=== PATIENT | male | born 1940 | race Caucasian/White ===

== ENCOUNTER 2023-05-28 08:42 | Emergency (ER) | payer MEDICARE, SELFPAY ==
--- NOTE | 2023-05-28 08:47 | ED.WOUNDLAC ---
HPI - Wound/Laceration General Chief Complaint: Skin/Abscess/Foreign Body Stated Complaint: finger laceration Time Seen by Provider: 05/28/23 08:47 Source: patient Mode of arrival: ambulatory Limitations: no limitations History of Present Illness HPI narrative: 82-year-old male presents with skin avulsion to right index finger. Injury happened last evening while slicing potatoes. Using a mandolin. patient applied gauze, wearing tape from home and Saran wrap. Patient states that bleeding stopped last night but when taking dressing off to re-dress with this morning it started to bleed again. Cannot get it to stop this time. Arrived holding finger With a paper towel. Tetanus not up-to-date. Patient does not want vaccine updated today. All systems reviewed and negative except as noted above. Related Data Home Medications Medication Instructions Recorded Confirmed aspirin 81 mg tablet,delayed 81 mg PO DAILY 10/10/21 05/28/23 release (Adult Low Dose Aspirin) folic acid 1 mg tablet 1 mg PO DAILY 10/10/21 05/28/23 multivitamin 1 tablet PO DAILY 10/10/21 05/28/23 prednisone 2.5 mg tablet 2.5 mg PO DAILY 10/10/21 05/28/23 acetaminophen 500 mg tablet 500 mg PO Q6H PRN Pain (Scale 04/15/22 05/28/23 (Tylenol Extra Strength) Score 4-6) methotrexate sodium 25 mg/mL 25 mg subcut WEEKLY 04/15/22 05/28/23 injection solution Allergies Allergy/AdvReac Type Severity Reaction Status Date / Time ibuprofen Allergy Unknown Hives Verified 05/28/23 09:16 Flounder Allergy Unknown HIVES, Uncoded 05/28/23 09:16 AIRWAY SWELLING Review of Systems Review of Systems: CONSTITUTIONAL: Denies fever, chills, or sweats. EYES: Denies visual changes, redness, or discharge. ENT: Denies rhinorrhea, congestion, sore throat, or otalgia. CARDIOVASCULAR: Denies chest pain, palpitations, or edema. RESPIRATORY: Denies cough or dyspnea. GASTROINTESTINAL: Denies abdominal pain, nausea, vomiting, or diarrhea. GENITOURINARY: Denies dysuria or hematuria. SKIN: Denies rash or itching. Reports laceration to right index finger. MUSCULOSKELETAL: Denies back pain, joint pain, or myalgia. NEUROLOGIC: Denies headache, numbness, or weakness. PSYCHIATRIC: Denies anxiety or depression. All other systems reviewed are negative, except as documented in HPI. [facility] Past Medical History Medical History Lung nodule Surgical History Surgical History History of inguinal hernia repair, bilateral 2001 Family History Family History Sibling Diabetes mellitus Father Family history of liver disease Mother , heart murmur with complications of valve replacement at age 82 No problems noted. Social History Social History Smoking status: Former smoker Second hand tobacco smoke exposure: No Smoking end date: 09/08/69 Alcohol intake: never Substance use: never Substance use type: does not use Living arrangements: with family Gender identity (if verbalized by the patient): Male Spiritual care concerns: No Agree to blood products: Yes Comments At time of signature, agree with nursing past medical, surgical, social and family history. There is no relevant family history pertinent to the presenting complaint. Exam Narrative: GENERAL: This is a well-nourished, well-developed patient, in no apparent distress. HEAD: normocephalic, atraumatic. EYES: PERRL. Sclera clear/white. Vision is grossly intact. EARS: External ears normal NOSE: External nose normal NECK: Neck supple, non-tender without lymphadenopathy, masses or thyromegaly. CARDIOVASCULAR: Regular rate and rhythm without murmurs, gallops, or rubs. RESPIRATORY: Clear to auscultation. Breath sounds equal bilaterally. N
[2023-05-28 09:08] VITALS: BP 116/65; PULSE 95; RESP 18; TEMP 36.4; O2SAT 97
--- NOTE | 2023-05-28 09:43 | PC.NURSE ---
Patient declined tetanus shot
== END 2023-05-28 10:00 | disposition home or self-care (01) ==
PROVIDERS: Emergency Provider Nurse Practitioner Family; PCP Family Medicine Adolescent Medicine
DX: S61.200A Unspecified open wound of right index finger without damage to nail, initial encounter (principal); W27.4XXA Contact with kitchen utensil, initial encounter; Z87.891 Personal history of nicotine dependence; Z79.82 Long term (current) use of aspirin
CPT/HCPCS: 99213; G0463

== ENCOUNTER → 2023-07-07 11:18 | Outpatient (CLI) | payer MEDICARE, SELFPAY ==
--- NOTE | ~2023-07-07 | US_ITS ---
EXAMINATION: US pelvic limited DATE: 07/07/2023 11:37 INDICATION: Comparison: TECHNIQUE: Multiple transabdominal sonographic images of the pelvis performed. FINDINGS: Bladder wall is mildly thickened. Prostate gland is enlarged. Prevoid volume is 323 cc. Pos tvoid volume is 129 cc. IMPRESSION: 1. Enlarged prostate gland with bladder wall thickening, likely due to outlet obstruction. 2: Moderate post void residual measuring 129 cc. Reviewed, dictated and finalized at location A. IMPRESSION: 1. Enlarged prostate gland with bladder wall thickening, likely due to outlet o bstruction. 2: Moderate post void residual measuring 129 cc.
== END ==
PROVIDERS: PCP Nurse Practitioner Family; Visit Provider Nurse Practitioner Family
DX: R33.9 Retention of urine, unspecified (principal)
CPT/HCPCS: 76857

== ENCOUNTER 2024-05-31 12:05 | Outpatient (CLI) | payer MEDICARE, SELFPAY ==
--- NOTE | ~2024-05-31 | XR_ITS ---
Clinical Indication: Weakness PA and lateral views of the chest: Comparison: 12/16/2018 Findings: The lungs are clear, without evidence of focal consolidation or pleural effusion. Cardiome diastinal silhouette is within normal limits. Bones and soft tissues are unremarkable, aside from chr onic right rib fracture deformities. Impression: Clear lungs. Reviewed, dictated and finalized at location . Impression: Clear lungs.
== END 2024-05-31 12:06 | disposition home or self-care (01) ==
PROVIDERS: PCP Family Medicine Adolescent Medicine; Visit Provider Family Medicine
DX: R53.1 Weakness (principal)
CPT/HCPCS: 71046

== ENCOUNTER 2024-07-01 09:41 | Outpatient (CLI) | payer MEDICARE, SELFPAY ==
--- NOTE | 2024-07-01 09:54 | ECHO_ITS ---
Patient Info Name: Surinder Navarro Age: 83 years : 1940 Gender: Male Ht: 69 in Wt: 172 lbs BSA: 1.96 m2 HR: 83 bpm BP: 119 / 69 mmHg Technical Quality: Fair Exam Date: 07/01/2024 10:05 AM Exam Location: Echo Lab Patient Status: Outpatient Admit Date: 07/01/2024 Staff Ordering Physician: Carmine Johnston DO Auditor Medical Claims: Cristina Amaya RDCS Attending Provider: Carmine Johnston DO Referring Physician: Preston ZAPIEN; Exam Type: CA echo doppler color flow Study Info Indications R01.1 - Cardiac murmur, unspecified Complete two-dimensional, color flow and Doppler transthoracic echocardiogram is performed. Summary 1. Complete two-dimensional, color flow and Doppler transthoracic echocardiogram is performed. 2. Left ventricular chamber dimension is normal. 3. Left ventricular systolic function is normal, estimated at 60-65%. 4. There is mild concentric increased left ventricular wall thickness. 5. The left ventricular diastolic function is grade I diastolic dysfunction. 6. E/e' 18 is elevated. 7. Left atrial chamber dimension is mildly enlarged. 8. There is severe aortic valve sclerosis. 9. There is trace aortic valve regurgitation. 10. There is critical aortic valve stenosis with a peak velocity of 569 cm/s, mean gradient of 66 mmHg, and aortic valve area of 0.5 cm2. 11. The mitral valve has moderately calcified annulus. 12. There is mild mitral valve regurgitation. 13. There is mild tricuspid valve regurgitation. 14. Mild pulmonary hypertension, estimated pulmonary arterial systolic pressure is 43 mmHg. Left Ventricle E/e' 18 is elevated. Left ventricular chamber dimension is normal. Left ventricular systolic function is normal, estimated at 60-65%. There is mild concentric increased left ventricular wall thickness. The left ventricular diastolic function is grade I diastolic dysfunction. Right Ventricle Right ventricular systolic function is normal and with normal TAPSE 2.3 cm. Right ventricular chamber dimension is normal. Left Atria Left atrial chamber dimension is mildly enlarged. Right Atria Right atrial chamber dimension is normal. Aortic Valve There is critical aortic valve stenosis with a peak velocity of 569 cm/s, mean gradient of 66 mmHg, and aortic valve area of 0.5 cm2. The aortic valve is probable trileaflet. There is severe aortic valve sclerosis. There is trace aortic valve regurgitation. Pulmonic Valve There is no pulmonic regurgitation. Mitral Valve The mitral valve has moderately calcified annulus. There is no mitral valve stenosis. There is mild mitral valve regurgitation. Tricuspid Valve There is mild tricuspid valve regurgitation. Mild pulmonary hypertension, estimated pulmonary arterial systolic pressure is 43 mmHg. Pericardium/Pleural There is no pericardial effusion. Inferior Vena Cava Normal inferior vena cava with >50% collapse upon inspiration consistent with normal right atrial pressure, 5 mmHg. Aorta The aortic root size at the sinus of Valsalva is normal. Left Ventricular Outflow Tract Name Value Normal LVOT 2D LVOT Diameter 2.0 cm LVOT Doppler LVOT Peak Gradient 4 mmHg LVOT Mean Gradient 2 mmHg LVOT VTI 23 cm LVOT VTI/AV VTI Ratio 0.2 LVOT Stroke Volume 70 ml LVOT CO 5.7 l/min LVOT CI 2.9 l/min/m2 Pulmonic Valve Name Value Normal PV Doppler PV Peak Gradient 5 mmHg Mitral Valve Name Value Normal MV Doppler MV Decel [place] 774 cm/s2 MV PHT 36 ms MV Area (PHT) 6.1 cm2 4.0-5.0 MV Diastolic Function MV E Peak Velocity 97 cm/s MV A Peak Velocity 137 cm/s MV E/A 0.7 MV Decel Time 125 ms Tricuspid Valve Name Value Normal TV Regurgitation Doppler TR Peak Velocity 309 cm/s TR Peak Gradient 28 mmHg Estimated PAP/RSVP RA Pressure 5 mmHg <=5 PA Systolic Pressure 43 mmHg <36 RV Systolic Pressure 43 mmHg <36 Aorta Name Value Normal Ascending Aorta Ao Root Diameter (MM) 2.5 cm Ao Root Diam Index (MM) 1.3 cm/m2 Aortic Valve Name Value Normal AV Doppler AV Peak Velocity 569 cm/s AV Peak Gradient 102 mmHg AV Mean Gradient 66 mmHg AV VTI 130 cm AV Area (Cont Eq VTI) 0.5 cm2 >=3.0 AV Area (Cont Eq Lei) 0.5 cm2 AV Regurgitation 2D LVOT Area 3.1 cm2 AV Regurgitation Doppler AR Decel Time 683 ms AR Decel [place] 609 cm/s2 AR PHT 198 ms Ventricles Name Value Normal LV Dimensions 2D/MM IVS Diastolic Thickness (2D) 1.0 cm 0.6-1.0 IVS Diastole Thickness (MM) 1.1 cm 0.6-1.0 LVID Diastole (2D) 4.8 cm 4.2-5.8 LVID Diastole (MM) 5.9 cm 4.2-5.8 LVIW Diastolic Thickness (2D) 1.1 cm 0.6-1.0 LVIW Diastolic Thickness (MM) 1.0 cm 0.6-1.0 LVID Systole (2D) 3.3 cm 2.5-4.0 LVID Systole (MM) 4.2 cm 2.5-4.0 LVOT Diameter 2.0 cm LV Mass (2D Cubed) 182.84 g 88.00-224.00 LV Mass Index (2D Cubed) 93 g/m2 49-115 Relative Wall Thickness (2D) 0.45 LV Mass (MM Cubed) 249.42 g 88.00-224.00 LV Mass Index (MM Cubed) 127 g/m2 49-115 Relative Wall Thickness (MM) 0.35 LV Fractional Shortening/Ejection Fraction 2D/MM LV Fractional Shortening (2D) 30 % 25-43 LV Fractional Shortening (MM) 29 % 25-43 LV EF (MM Teicholz) 55 % 52-72 LV EF (2D Teicholz) 57 % 52-72 LV Diastolic Volume (4C MOD) 74 ml LV EF (4C MOD) 69 % LV Diastolic Volume (2C MOD) 73 ml LV EF (2C MOD) 61 % LV Diastolic Volume (BP MOD) 74 ml 62-150 LV Diastolic Volume Index (BP MOD) 38 ml/m2 34-74 LV Systolic Volume (BP MOD) 27 ml 21-61 LV Systolic Volume Index (BP MOD) 14 ml/m2 11-31 LV EF (BP MOD) 63 % 52-72 LV Diastolic Length (4C) 8.6 cm LV Systolic Length (4C) 6.5 cm LV Stroke Volume (4C MOD) 51 ml Atria Name Value Normal LA Dimensions LA Dimension (MM) 3.4 cm 3.0-4.1 LA Volume (4C A-L) 51 ml LA Volume (BP A-L) 58 ml RA Dimensions RA Area (4C) 19.0 cm2 <=18.0 Report Signatures
== END 2024-07-01 09:42 | disposition home or self-care (01) ==
LOC: ANHCARD 09:43
PROVIDERS: PCP Family Medicine Adolescent Medicine; Visit Provider Family Medicine
DX: I08.3 Combined rheumatic disorders of mitral, aortic and tricuspid valves (principal); I27.20 Pulmonary hypertension, unspecified; R01.1 Cardiac murmur, unspecified
CPT/HCPCS: 93306

== ENCOUNTER 2024-07-22 01:29 | Day surgery (SDC) | payer MEDICARE, SELFPAY ==
[2024-07-21 13:40] VITALS: BMI 25.9
[2024-07-22] VITALS (8 sets, daily range): BP systolic 126–151; BP diastolic 85–111; PULSE 93–112; RESP 14–19; TEMP 36.6–36.7; O2SAT 92–98
--- NOTE | 2024-07-22 07:04 | ECHO_ITS ---
Patient Info Name: Surinder Navarro Age: 83 years : 1940 Gender: Male Ht: 68 in Wt: 170 lbs BSA: 1.94 m2 Technical Quality: Good Exam Date: 07/22/2024 7:29 AM Exam Location: Echo Lab Patient Status: Outpatient Admit Date: 07/22/2024 Staff Ordering Physician: Darwin Stoll DO Automation Mechanic: Rosalee Yancey RDCS Attending Provider: Darwin Stoll DO Referring Physician: Jerman HAINES; Exam Type: CA echo transesophageal Study Info Indications I35.0 - Nonrheumatic aortic (valve) stenosis Complete two-dimensional, color flow and Doppler transesophageal study is performed. Procedure Details Risks/benefits/alternative to JUJU discussed with patient and he gave informed consent. He was monitored electrocardiographically, vitals and pulse. He was in normal rhythm at 90 bpm, BP 140/70 mmHg, pulse ox 95%. Benzocaine spray x 2 to posterior oropharynx. Fentanyl 25 mcg and Versed 1 mg IV for conscious sedation. JUJU probe advanced and he swallowed without incident. Agitated saline given. Multipe images obtained. JUJU probe withdrawn and no blood noted on JUJU probe tip. He tolerated procedure well with no complications. Summary 1. Transesophageal echocardiogram. 2. Left ventricular chamber dimension is normal. 3. There is moderate concentric increased left ventricular wall thickness. 4. Left ventricular systolic function is normal with an ejection fraction of 60-65% by visual estimation. 5. The left ventricular diastolic function is indeterminate as it was not assessed.. 6. Left atrial chamber dimension is moderately enlarged. 7. There is severe aortic valve sclerosis. 8. There is trace aortic valve regurgitation. 9. There is critical aortic valve stenosis with valve area of 0.3 cm2 by planimetry. 10. The mitral valve has mildly calcified annulus. 11. There is moderate to severe mitral valve regurgitation. Left Ventricle Left ventricular systolic function is normal with an ejection fraction of 60-65% by visual estimation. The left ventricular diastolic function is indeterminate as it was not assessed.. Left ventricular chamber dimension is normal. There is moderate concentric increased left ventricular wall thickness. Right Ventricle Right ventricular chamber dimension is normal. Right ventricular systolic function is normal. Left Atria Left atrial chamber dimension is moderately enlarged. Right Atria Right atrial chamber dimension is normal. Atrial Septum Agitated saline injection opacified right side cardiac chambers without shunt to left side cardiac chambers. Intact interatrial septum visualized by 2D, color flow and agitated saline imaging. Atrial Appendage There is no thrombus visualized in the left atrial appendage. Aortic Valve There is critical aortic valve stenosis with valve area of 0.3 cm2 by planimetry. The aortic valve is trileaflet. There is severe aortic valve sclerosis. There is trace aortic valve regurgitation. Pulmonic Valve There is no pulmonic regurgitation. Mitral Valve The mitral valve has mildly calcified annulus. There is no mitral valve stenosis. There is moderate to severe mitral valve regurgitation. Tricuspid Valve There is no tricuspid valve regurgitation. Pericardium/Pleural There is no pericardial effusion. Inferior Vena Cava Inferior vena cava is not well visualized. Aorta The aortic root size at the sinus of Valsalva is normal. Aortic Valve Name Value Normal AV 2D/MM AV Area (Planimetry) 0.3 cm2 Report Signatures
== END 2024-07-22 09:45 | disposition home or self-care (01) ==
PROVIDERS: PCP Family Medicine Adolescent Medicine; Visit Provider Internal Medicine Cardiovascular Disease
PROC: (CPT 93312; principal; 2024-07-22 08:00)
DX: I35.0 Nonrheumatic aortic (valve) stenosis (principal); I35.8 Other nonrheumatic aortic valve disorders; I34.81 Nonrheumatic mitral (valve) annulus calcification; I34.0 Nonrheumatic mitral (valve) insufficiency; I51.89 Other ill-defined heart diseases; E78.00 Pure hypercholesterolemia, unspecified; J84.10 Pulmonary fibrosis, unspecified; I50.30 Unspecified diastolic (congestive) heart failure; Z79.52 Long term (current) use of systemic steroids; Z98.890 Other specified postprocedural states; Z87.891 Personal history of nicotine dependence
CPT/HCPCS: 93312; 93320; 93325; J2250; J3010

== ENCOUNTER 2024-08-03 00:07 | Day surgery (SDC) | payer MEDICARE, SELFPAY ==
[2024-08-02 09:49] VITALS: BMI 25.9
[2024-08-03] VITALS (20 sets, daily range): BP systolic 93–139; BP diastolic 62–96; PULSE 87–106; RESP 14–20; TEMP 36.8; O2SAT 93–97; BMI 25.1
[2024-08-03 07:45] LABS: Basophils Percent Auto 0.6 % (0.2-1.2); Eosinophils Absolute Auto 0.2 K/mm3 (0-0.3); Eosinophils Percent Auto 2.5 % (0-4.4); Hematocrit 36.4 % (42.0-52.0); Hemoglobin 12.2 g/dL (14.0-18.0); Immature Granulocyte Absolute 0.03 K/mm3 (0.00-0.031); Immature Granulocyte Percent A 0.4 % (0-0.5); Lymphocytes Absolute Auto 1.26 K/mm3 (0.9-3.2); Lymphocytes Percent Auto 18.6 % (18.3-44.2); Mean Corpuscular HGB Conc 33.5 g/dl (32-36); Mean Corpuscular Hemoglobin 35.6 pg (26-34); Mean Corpuscular Volume 106.1 fl (80-100); Mean Platelet Volume 10.4 fl (7.4-10.4); Monocytes Absolute Auto 0.6 K/mm3 (0.1-0.6); Monocytes Percent Auto 8.7 % (2.6-8.5); Neutrophils Absolute Auto 4.7 K/mm3 (1.3-6.7); Neutrophils Percent Auto 69.2 % (45.5-73.1); Platelet Count Result 170 k/mm3 (150-375); Red Blood Count 3.43 M/mm3 (4.6-6.20); Red Cell Distribution Width 15.5 % (11.5-14.5); White Blood Count 6.8 K/mm3 (4.5-10.0)
[2024-08-03 07:56] LABS: Anion Gap 5 mmol/L (4-12); Blood Urea Nitrogen 19 mg/dL (9-20); Calcium 9.1 mg/dL (8.4-10.2); Carbon Dioxide 28 mmol/L (22-30); Chloride 105 mmol/L (98-107); Estimated CRCL calculation 55 ml/min; Estimated Glomerular Filt Rate > 60; Glucose 97 mg/dL (65-110); Potassium 3.9 mmol/L (3.4-5.0); Sodium 138 mmol/L (137-145)
[2024-08-03 08:07] LABS: Macrocytosis 1+ (NORMAL); Platelet Estimate Adequate (Adequate)
[2024-08-03 08:08] LABS: Schistocytes None Seen
--- NOTE | 2024-08-03 08:58 | WPDHPUPDATE1 ---
History and Physical Update Update Date/Time: 08/03/24 08:58 History and Physical has been reviewed, including an updated exam of the patient. There are NO changes in the patient's condition. Risks, benefits, and alternatives have been discussed and questions answered. Patient agrees to proceed with procedure.
--- NOTE | 2024-08-03 08:58 | WPDMODSED ---
Moderate Sedation Note-Pt Data Patient Data Diagnosis: Severe aortic stenosis Present Complaint: Severe aortic stenosis Procedure to be performed/Plan: Coronary angiography, Right heart cath Allergies Allergy/AdvReac Type Severity Reaction Status Date / Time ibuprofen Allergy Unknown Hives Verified 08/03/24 07:45 Flounder Allergy Unknown HIVES, Uncoded 08/03/24 07:45 AIRWAY SWELLING Home Medications Medication Instructions Recorded Confirmed Type folic acid 1 mg tablet 1 mg PO DAILY 10/10/21 08/03/24 History multivitamin 1 tablet PO DAILY 10/10/21 08/03/24 History prednisone 2.5 mg tablet 2.5 mg PO DAILY 10/10/21 08/03/24 History acetaminophen 500 mg tablet 500 mg PO Q6H PRN Pain (Scale 04/15/22 08/03/24 History (Tylenol Extra Strength) Score 4-6) methotrexate sodium 25 mg/mL 25 mg subcut WEEKLY 04/15/22 08/03/24 History injection solution atorvastatin 20 mg tablet 20 mg PO DAILY #90 tabs 08/07/23 08/03/24 Rx finasteride 5 mg tablet 5 mg PO DAILY 07/14/24 08/03/24 History omeprazole 20 mg capsule,delayed 20 mg PO DAILY 07/14/24 08/03/24 History release saw palmetto 160 mg capsule 160 mg PO DAILY 07/14/24 08/03/24 History Current Medications: Active Medications Sodium Chloride (Normal Saline Iv) 500 mls @ 100 mls/hr IV CONT .Q5H LACHO Sedation/Anesthesia: No previous sedation/anesthesia problems (including family history). [facility] Past Medical History Medical History Lung nodule Surgical History Surgical History History of inguinal hernia repair, bilateral 2001 Family History Family History Sibling Diabetes mellitus Father Family history of liver disease Mother , heart murmur with complications of valve replacement at age 82 No problems noted. Social History Social History Smoking status: Former smoker Tobacco type: cigarettes Second hand tobacco smoke exposure: No Smoking end date: 08/02/70 Alcohol intake: former Substance use: never Substance use type: does not use Lack of Transportation: No Lack of Food: Never True Current Housing: I Have Housing Concerned About Future Housing: No Difficulty Paying Gas/Electric Bills: No Difficulty Paying for Meds: No Currently Unemployed: No Education: Associate Degree Difficulty w/ Childcare or Family Care: No Living arrangements: with family Gender identity (if verbalized by the patient): Male Spiritual care concerns: No Agree to blood products: Yes Mod Sed Physical Exam Physical Exam Pre Procedural Exam: Normal: Appearance, Lungs, Heart Rate, Heart Rhythm, Neuro Exam, Extremities and Skin Hours since solid foods: 12 Hours since liquid intake: 8 Mallampati Classification: class III Internal Medicine - PN: Obj Da Vital Signs Vital Signs: Vital Signs - 24 hr 08/03/24 07:00 Temperature 36.8 C Pulse Rate 106 H Respiratory Rate 15 Blood Pressure 139/94 H Pulse Oximetry 97 Oxygen Delivery Room Air Intake/Output Intake/Output: Intake & Output 07/31/24 08/01/24 08/02/24 08/03/24 23:59 23:59 23:59 23:59 Intake Total 0 Balance 0 Meds/Results Medications: Active Medications Generic Name Dose Route Start Last Admin Trade Name Freq PRN Reason Stop Dose Admin Sodium Chloride 500 mls @ 100 mls/hr 08/03/24 07:00 Normal Saline Iv IV CONT .Q5H LACHO Labs 08/03/24 07:41 08/03/24 07:41 Labs: Laboratory Results - last 24 hr 08/03/24 07:41 WBC 6.8 RBC 3.43 L Hgb 12.2 L Hct 36.4 L MCV 106.1 H MCH 35.6 H MCHC 33.5 RDW 15.5 H Plt Count 170 MPV 10.4 Immature Gran % (Auto) 0.4 Neut % (Auto) 69.2 Lymph % (Auto) 18.6 [place] % (Auto) 8.7 H Eos % (Auto) 2.5 Baso % (Auto) 0.6 Lymph # (Auto) 1.26 [place] # (Auto) 0.6 Eos # (Auto) 0.2 Baso # (Auto) 0.0 Abs Immat Gran (auto) 0.03 Absolute Neuts (auto) 4.7 Absolute Nucleated RBC 0.000 Nucleated RBC % 0.0 Platelet Estimate Adequate Macrocytosis 1+ Schistocytes None seen Sodium 138 Potassium 3.9 Chloride 105 Carbon Dioxide 28 Anion Gap 5 BUN 19 Creatinine 0.90 Estim Creat Clear Calc 55 Estimated GFR > 60 Glucose 97 Calcium 9.1 ASA Classification/Sedation ASA Classification/Sedation ASA Class: III Emergent: No Risks: Risks, benefits and alternatives explained and patient/family accepted plan for sedation. Patient re-evaluated immediately prior to sedation.
--- NOTE | 2024-08-03 08:59 | WPDCARDPROC ---
Cardiac Cath Procedure Note Date of procedure:: 08/03/24 Performing physician:: CATHETERIZATION LABORATORY REPORT Procedure Date: 08/03/2024 Electric Motor Repair Supervisor: Dani Chaves M.D., [facility]? Referring Physician: Dr. Stoll ? Anesthesia: Versed and Fentanyl were ordered and given in my presence at 09:08, procedure ended at 09:42. Supervision of nurse monitored moderate sedation with Versed and Fentanyl was provided for 34 minutes. Total of Versed 1mg and Fentanyl 25mcg were administered by the Change Agent RN Naresh Arce. Pre-op Diagnosis: Severe aortic stenosis Post-op Diagnosis: 1. Non-obstructive coronary artery disease 2. Elevated right heart filling pressures 3. Isolated postcapillary pulmonary hypertension 4. Dipesh CO: 4.3 5. Dipesh CI: 2.3 Procedure(s): 1. Moderate sedation 2. Ultrasound-guided access of the right common femoral artery and right femoral vein 3. Coronary angiography 4. Right heart cath Access Site: Right common femoral artery Right femoral vein Brief History and Clinical Indications: Patient is an 83 year old male who is referred for LHC and RHC for severe aortic stenosis All risks, benefits and alternatives to left heart catheterization with or without percutaneous coronary intervention was discussed at length with the patient. Risk of complications including but not limited to bleeding, infection, arrhythmia, stroke, worsening kidney function, blood loss, groin hematoma, limb loss, emergency coronary artery bypass grafting, and even were discussed with the patient and all questions were answered. The patient understood and wished to proceed. Time out called, patient name, date of , medical record number, allergies, procedure performed, identify Electric Motor Repair Supervisor, patient and staff member concurred with accurate data, procedure carried on. Findings: LEFT HEART CATHETERIZATION FINDINGS: 1. Left main: The left main coronary artery is widely patent without any significant obstructive disease. 2. Left anterior descending: The proximal LAD has mild diffuse disease. Remainder of LAD has luminal irregularities. The diagonal branch has mild disease. No significant obstructive angiographic disease. 3. Ramus: Mild disease in the proximal portion. No significant obstructive angiographic disease. 4. Left circumflex: The left circumflex artery and the main marginal branches have mild luminal irregularities without any significant obstructive angiographic disease. 5. Right coronary artery: The RCA is the dominant vessel. The proximal-mid RCA has mild diffuse disease. No significant obstructive angiographic disease. 6. Left ventricle: The aortic valve was not crossed due to known aortic stenosis. RIGHT HEART CATHETERIZATION FINDINGS: Pressures (mmHg): RA: 8 RV: 45/8 PA: 42/21mmHg with mean of 29mmHg PCWP: 21 Saturations (%): PA: 58.8% Arterial: 92.1% CO/CI: Dipesh CO: 4.3 Dipesh CI: 2.3 PVR (TORRES): 1.9 Description of Procedure: Informed consent signed and placed in the chart. Patient transferred to boot and shoe laborer room. Prepped and draped in usual sterile fashion. 2% lidocaine injected subcutaneously in right groin area. Right femoral vein was accessed using micropuncture technique under ultrasound guidance. 7-FR sheath placed. Micropuncture needle used to access right common femoral artery with Seldinger technique under fluoroscopic and ultrasound guidance. J wire advanced, micropuncture cannula placed. Right iliofemoral angiogram performed, access confirmed and micropuncture cannula exchanged for 5-FR sheath. 7F [place] catheter was advanced into the right side of the heart chambers and pressures were measured. 5F FL 4 diagnostic catheter engaged Left Main Coronary Artery. 5F FR 4 diagnostic catheter engaged Right Coronary Artery. Multiple orthogonal angiogram obtained and reviewed Hemostasis was achieved by manual pressure. Disposition: Home Plan: The patient will be monitored in the recovery area. Discharge home after post cath bed rest is completed. The above findings were discussed with the referring physician. Continue aggressive medical therapy and risk factor modification. ? Dani Chaves M.D. Interventional Cardiology
== END 2024-08-03 16:40 | disposition home or self-care (01) ==
PROVIDERS: PCP Family Medicine Adolescent Medicine; Visit Provider Internal Medicine
PROC: (CPT 93566; principal; 2024-08-03 08:30)
DX: I35.0 Nonrheumatic aortic (valve) stenosis (principal); Z79.52 Long term (current) use of systemic steroids; Z98.890 Other specified postprocedural states; Z87.891 Personal history of nicotine dependence
CPT/HCPCS: 36415; 80048; 85025; 93456; A9270; C1769; C1894; J1644; J2003; J2250; J2305; J3010; J7040

== ENCOUNTER 2024-09-06 12:56 | Emergency (ER) | payer MEDICARE, SELFPAY ==
[2024-09-06] VITALS (27 sets, daily range): BP systolic 106–142; BP diastolic 77–105; PULSE 89–132; RESP 17–29; TEMP 36.3; O2SAT 91–97
--- NOTE | ~2024-09-06 | XR_ITS ---
XR chest 2V Ordering provider: Keena Bird PA-C History: 84 years Male with . cp WITH SHORTNESS OF BREATH WORSENING PAST 2-3 DAYS . Comparison: May 31, 2024 FINDINGS: MEDIASTINUM: The cardiac silhouette is slightly enlarged. Congestive senthil. LUNGS: No effusions or pneumothorax. Ossification the ligament lung base. Blunting of the costophreni c angle suggestive of minimal effusion. OTHER: No free air under the diaphragm. Healing fractures in the right hemithorax are noted. IMPRESSION: Left basilar atelectasis versus pneumonia with minimal effusion. Slight cardiomegaly. Congestive senthil. Cardiac decompensation is not excluded. Reviewed, dictated and finalized at location A. [employer]CTION[employer] CAPTAIN
--- NOTE | 2024-09-06 13:13 | ECG_ITS ---
Test Date: 2024-09-06 13:19:35 Measurements Intervals [place] Rate: 113 P: 48 SD: 159 QRS: 34 QRSD: 84 T: 103 QT: 311 QTc: 427 Interpretive Statements SINUS TACHYCARDIA WITH OCCASIONAL VENTRICULAR PREMATURE COMPLEXES WITH OCCASIONAL SUPRAVENTRICULAR PREMATURE COMPLEXES POSSIBLE LEFT ATRIAL ENLARGEMENT [-0.1mV P WAVE IN V1/V2] LEFT VENTRICULAR HYPERTROPHY AND ST-T CHANGE [VOLTAGE CRITERIA PLUS ST/T ABNORMALITY] No previous ECG available for comparison Electronically Signed On 09-06-2024 18:06:31 GAS DISPENSER by Abel Lugo M.D.
--- NOTE | 2024-09-06 13:13 | ED_ITS ---
HPI - Chest Pain General Chief Complaint: Chest Pain <Keena Bird PA-C - Last Filed: 09/06/24 13:26> Stated Complaint: chest pain <Keena Bird PA-C - Last Filed: 09/06/24 13:26> Time Seen by Provider: 09/06/24 13:13 <Keena Bird PA-C - Last Filed: 09/06/24 13:26> Focused HPI: Patient is an 84 y/o male who presents to the ED with c/o SOB. Patient is scheduled to undergo TAVR on Friday by Dr. Holder at [facility]. Reports SOB worse over past couple weeks, worsening again this morning. Worse with laying flat and with exertion. Reports occasional chest pressure over past couple days. Denies CP today or currently. Denies BLE swelling. Denies cough, cold sx's. GENERAL: Elderly, well-nourished, and in no acute distress. HEAD: Normocephalic, atraumatic. CHEST: Clear to auscultation. ?No respiratory distress. No significant focal lung sounds. HEART: Tachycardic with irregular rhythm. pedal pulses intact. No significant peripheral edema. NEURO: ?Alert and oriented x3. Patient screened in triage and initial orders placed.? ?Additional care and disposition to be based upon?diagnostic testing and treatment. <Keena Bird PA-C - Last Filed: 09/06/24 13:26> Source: patient <Keena Bird PA-C - Last Filed: 09/06/24 13:26> Mode of arrival: ambulatory <Keena Bird PA-C - Last Filed: 09/06/24 13:26> Limitations: no limitations <Keena Bird PA-C - Last Filed: 09/06/24 13:26> History of Present Illness HPI narrative: Agree with HPI. Worsening orthopnea and exertional dyspnea. Not on a diuretic or rate control med. No antiplatelets or blood thinners. <Bhavin Navarrete MD - Last Filed: 09/06/24 21:56> Related Data Home Medications: Home Medications ?Medication ?Instructions ?Recorded ?Confirmed ?Last Taken ?Type folic acid 1 mg tablet 1 mg PO DAILY 10/10/21 08/13/24 08/02/24 History multivitamin 1 tablet PO DAILY 10/10/21 08/13/24 08/02/24 History prednisone 2.5 mg tablet 2.5 mg PO DAILY 10/10/21 08/13/24 08/02/24 History acetaminophen 500 mg tablet 500 mg PO Q6H PRN Pain (Scale 04/15/22 08/13/24 07/21/24 History (Tylenol Extra Strength) Score 4-6) methotrexate sodium 25 mg/mL 25 mg subcut WEEKLY 04/15/22 08/13/24 08/02/24 History injection solution finasteride 5 mg tablet 5 mg PO DAILY 07/14/24 08/13/24 08/02/24 History omeprazole 20 mg capsule,delayed 20 mg PO DAILY 07/14/24 08/13/24 08/02/24 History release saw palmetto 160 mg capsule 160 mg PO DAILY 07/14/24 08/13/24 08/02/24 History <Keena Bird PA-C - Last Filed: 09/06/24 13:26> Allergies/Adverse Reactions: Allergies Allergy/AdvReac Type Severity Reaction Status Date / Time ibuprofen Allergy Unknown Hives Verified 09/06/24 12:58 Flounder Allergy Unknown HIVES, Uncoded 09/06/24 12:58 AIRWAY SWELLING <Keena Bird PA-C - Last Filed: 09/06/24 13:26> Review of Systems 2 Review of Systems: All systems reviewed & are unremarkable except as noted in HPI and below <Bhavin Navarrete MD - Last Filed: 09/06/24 21:56> Constitutional: Constitutional: Reports no additional constitutional complaints <Bhvain Navarrete MD - Last Filed: 09/06/24 21:56> ENT: Reports system reviewed and no additional complaints, except as documented <Bhavin Navarrete MD - Last Filed: 09/06/24 21:56> Cardiovascular: Cardiovascular: Reports no additional cardiovascular complaints <Bhavin Navarrete MD - Last Filed: 09/06/24 21:56> Respiratory: Respiratory: Reports no additional respiratory complaints < Bhavin Navarrete MD - Last Filed: 09/06/24 21:56> Gastrointestinal: Gastrointestinal: Reports no additional gastrointestinal complaints <hBavin Navarrete MD - Last Filed: 09/06/24 21:56> Musculoskeletal: Musculoskeletal: Reports no additional musculoskeletal complaints <Bhavin Navarrete MD - Last Filed: 09/06/24 21:56> PMFSH Past Medical History Medical History: Medical History Lung nodule <Keena Bird PA-C - Last Filed: 09/06/24 13:26> Surgical History Surgical History: Surgical History History of inguinal hernia repair, bilateral 2002 <Keena Bird PA-C - Last Filed: 09/06/24 13:26> Family History Family History: Family History Sibling Diabetes mellitus Father Family history of liver disease Mother , heart murmur with complications of valve replacement at age 82 No problems noted. <Keena Bird PA-C - Last Filed: 09/06/24 13:26> Social History Social History: Social History Smoking status: Former smoker Tobacco type: cigarettes Second hand tobacco smoke exposure: No Smoking end date: 08/02/70 Alcohol intake: former Substance use: never Substance use type: does not use Lack of Transportation: No Lack of Food: Never True Current Housing: I Have Housing Concerned About Future Housing: No Difficulty Paying Gas/Electric Bills: No Difficulty Paying for Meds: No Currently Unemployed: No Education: Associate Degree Difficulty w/ Childcare or Family Care: No Living arrangements: with family Gender identity (if verbalized by the patient): Male Spiritual care concerns: No Agree to blood products: Yes <Keena Bird PA-C - Last Filed: 09/06/24 13:26> Exam 2 Narrative: GENERAL: Well-appearing, well-nourished, and in no acute distress. HEAD: Normocephalic, atraumatic. ENT: Nares clear, no rhinorrhea or epistaxis. Mucous membranes moist. NECK: Supple. CHEST: Clear to auscultation. No respiratory distress. HEART: tachycardic and irregular. murmur consistent with aortic stenosis. Normal peripheral pulses. ABDOMEN: Soft, nontender, nondistended,. EXTREMITIES: Normal range of motion. Trace edema. SKIN: Warm, dry, no rash. NEURO: Alert and oriented x3. PSYCH: Normal mood and affect. <Bhavin Navarrete MD - Last Filed: 09/06/24 21:56> Course Course Emergency Course: Patient resting comfortably. He has some modest tachycardia. No tachypnea or hypoxia. 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 Discussed case with Dr. Holder, feels Cardiology should be managing medically and surgical time table will not be moved up at this time. Recommends patient be admitted at our hospital or transferred to [facility] for medical management. I have discussed at length with the patient the admission for rate control and diuresis. He declines to stay in the hospital here or at [facility]. He would like to try diuretic for home and that is all. he recognizes the risks of severe aortic stenosis and his orthopnea and that he could developed flash pulmonary edema and potentially . at bedside for this conversation. Will give 1st dose of Lasix here. I reassessed the patient S is heart rates going into the 140s. He was on the phone with Dr. Holder. he is now agreeable to transfer to [facility] for rate control and diuresis. He will be started on metoprolol 12.5 mg here and given 1 dose of Lasix. Accepted by Dr. Quijano with the hospitalist service. <Bhavin Navarrete MD - Last Filed: 09/06/24 21:56> Patient resting comfortably. He has some modest tachycardia. No tachypnea or hypoxia. 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 Discussed case with Dr. Holder, feels Cardiology should be managing medically and surgical time table will not be moved up at this time. Recommends patient be admitted at our hospital or transferred to [facility] for medical management. I have discussed at length with the patient the admission for rate control and diuresis. He declines to stay in the hospital here or at [facility]. He would like to try diuretic for home and that is all. he recognizes the risks of severe aortic stenosis and his orthopnea and that he could developed flash pulmonary edema and potentially . at bedside for this conversation. Will give 1st dose of Lasix here. I reassessed the patient S is heart rates going into the 140s. He was on the phone with Dr. Holder. he is now agreeable to transfer to [facility] for rate control and diuresis. He will be started on metoprolol 12.5 mg here and given 1 dose of Lasix. Accepted by Dr. Quijano with the hospitalist service. SHIRIN 0709/07: Patient signed out to me pending transfer. I was notified by nursing staff that the patient had become hypotensive @ 80/50 He was given 500 cc bolus x2 with improvement in blood pressure. Signed out pending transfer. <Dat Suazo MD - Last Filed: 09/07/24 06:56> Vital Signs Vital signs: Vital Signs Temperature 97.3 F L 09/06/24 13:08 Pulse Rate 112 H 09/06/24 13:08 Respiratory Rate 20 09/06/24 13:08 Blood Pressure 142/105 H 09/06/24 13:08 Pulse Oximetry 97 09/06/24 13:08 Oxygen Delivery Room Air 09/06/24 13:08 Temperature 97.3 F L 09/06/24 13:08 Pulse Rate 100 09/07/24 06:16 Respiratory Rate 20 09/07/24 06:16 Blood Pressure 106/60 09/07/24 06:16 Pulse Oximetry 93 09/07/24 06:16 Oxygen Delivery Room Air 09/06/24 13:08 <Keena Bird PA-C - Last Filed: 09/06/24 13:26> Vital Signs Temperature 97.3 F L 09/06/24 13:08 Pulse Rate 112 H 09/06/24 13:08 Respiratory Rate 20 09/06/24 13:08 Blood Pressure 142/105 H 09/06/24 13:08 Pulse Oximetry 97 09/06/24 13:08 Oxygen Delivery Room Air 09/06/24 13:08 Temperature 97.3 F L 09/06/24 13:08 Pulse Rate 100 09/07/24 06:16 Respiratory Rate 20 09/07/24 06:16 Blood Pressure 106/60 09/07/24 06:16 Pulse Oximetry 93 09/07/24 06:16 Oxygen Delivery Room Air 09/06/24 13:08 <Bhavin Navarrete MD - Last Filed: 09/06/24 21:56> Vital Signs Temperature 97.3 F L 09/06/24 13:08 Pulse Rate 112 H 09/06/24 13:08 Respiratory Rate 20 09/06/24 13:08 Blood Pressure 142/105 H 09/06/24 13:08 Pulse Oximetry 97 09/06/24 13:08 Oxygen Delivery Room Air 09/06/24 13:08 Temperature 97.3 F L 09/06/24 13:08 Pulse Rate 100 09/07/24 06:16 Respiratory Rate 20 09/07/24 06:16 Blood Pressure 106/60 09/07/24 06:16 Pulse Oximetry 93 09/07/24 06:16 Oxygen Delivery Room Air 09/06/24 13:08 <Dat Suazo MD - Last Filed: 09/07/24 06:56> MDM - Chest Pain MDM Narrative Medical decision making narrative: MSE by CESAR in triage. <Keena Bird PA-C - Last Filed: 09/06/24 13:26> Lab Data Result diagrams: 09/06/24 14:05 09/06/24 14:05 <Keena Bird PA-C - Last Filed: 09/06/24 13:26> Labs: Lab Results 09/06/24 09/06/24 Range/Units 14:05 18:49 WBC 7.9 (4.5-10.0) K/mm3 RBC 3.41 L (4.6-6.20) M/mm3 Hgb 12.3 L (14.0-18.0) g/dL Hct 36.5 L (42.0-52.0) % MCV 107.0 H (80-100) fl MCH 36.1 H (26-34) pg MCHC 33.7 (32-36) g/dl RDW 15.2 H (11.5-14.5) % Plt Count 192 (150-375) k/mm3 MPV 10.6 H (7.4-10.4) fl Immature Gran % (Auto) 0.4 (0-0.5) % Neut % (Auto) 82.1 H (45.5-73.1) % Lymph % (Auto) 9.4 L (18.3-44.2) % Coke % (Auto) 7.5 (2.6-8.5) % Eos % (Auto) 0.3 (0-4.4) % Baso % (Auto) 0.3 (0.2-1.2) % Lymph # (Auto) 0.74 L (0.9-3.2) K/mm3 Coke # (Auto) 0.6 (0.1-0.6) K/mm3 Eos # (Auto) 0.0 (0-0.3) K/mm3 Baso # (Auto) 0.0 (0.0-0.1) K/mm3 Abs Immat Gran (auto) 0.03 (0.00-0.031) K/mm3 Absolute Neuts (auto) 6.5 (1.3-6.7) K/mm3 Absolute Nucleated RBC 0.000 (0.0-0.012) K/mm3 Nucleated RBC % 0.0 (0.0-0.2) % Platelet Estimate Adequate (Adequate) Anisocytosis 2+ Macrocytosis 1+ (NORMAL) Schistocytes None seen PT 13.6 (11.1-14.7) Seconds INR 1.0 APTT 29.1 (22.3-36.8) Seconds Sodium 136 L (137-145) mmol/L Potassium 4.7 (3.4-5.0) mmol/L Chloride 107 (98-107) mmol/L Carbon Dioxide 27 (22-30) mmol/L Anion Gap 2 L (4-12) mmol/L BUN 18 (9-20) mg/dL Creatinine 1.00 (0.7-1.3) mg/dL Estim Creat Clear Calc 49 ml/min Estimated GFR > 60 (59 - ) Glucose 115 H (65-110) mg/dL Calcium 9.2 (8.4-10.2) mg/dL Magnesium 1.9 (1.6-2.3) mg/dL Total Bilirubin 1.1 (0.2-1.3) mg/dL AST 59 (17-59) U/L ALT 57 H (6-50) U/L Alkaline Phosphatase 74 (38-126) U/L Troponin I 0.024 0.027 (0.000-0.034) ng/mL NT-Pro-B Natriuret Pep 2270 H (19.9-100) pg/mL Total Protein 8.0 (6.3-8.2) g/dL Albumin 4.2 (3.5-5.1) g/dL <Keena Bird PA-C - Last Filed: 09/06/24 13:26> Lab Results 09/06/24 09/06/24 Range/Units 14:05 18:49 WBC 7.9 (4.5-10.0) K/mm3 RBC 3.41 L (4.6-6.20) M/mm3 Hgb 12.3 L (14.0-18.0) g/dL Hct 36.5 L (42.0-52.0) % MCV 107.0 H (80-100) fl MCH 36.1 H (26-34) pg MCHC 33.7 (32-36) g/dl RDW 15.2 H (11.5-14.5) % Plt Count 192 (150-375) k/mm3 MPV 10.6 H (7.4-10.4) fl Immature Gran % (Auto) 0.4 (0-0.5) % Neut % (Auto) 82.1 H (45.5-73.1) % Lymph % (Auto) 9.4 L (18.3-44.2) % Coke % (Auto) 7.5 (2.6-8.5) % Eos % (Auto) 0.3 (0-4.4) % Baso % (Auto) 0.3 (0.2-1.2) % Lymph # (Auto) 0.74 L (0.9-3.2) K/mm3 Coke # (Auto) 0.6 (0.1-0.6) K/mm3 Eos # (Auto) 0.0 (0-0.3) K/mm3 Baso # (Auto) 0.0 (0.0-0.1) K/mm3 Abs Immat Gran (auto) 0.03 (0.00-0.031) K/mm3 Absolute Neuts (auto) 6.5 (1.3-6.7) K/mm3 Absolute Nucleated RBC 0.000 (0.0-0.012) K/mm3 Nucleated RBC % 0.0 (0.0-0.2) % Platelet Estimate Adequate (Adequate) Anisocytosis 2+ Macrocytosis 1+ (NORMAL) Schistocytes None seen PT 13.6 (11.1-14.7) Seconds INR 1.0 APTT 29.1 (22.3-36.8) Seconds Sodium 136 L (137-145) mmol/L Potassium 4.7 (3.4-5.0) mmol/L Chloride 107 (98-107) mmol/L Carbon Dioxide 27 (22-30) mmol/L Anion Gap 2 L (4-12) mmol/L BUN 18 (9-20) mg/dL Creatinine 1.00 (0.7-1.3) mg/dL Estim Creat Clear Calc 49 ml/min Estimated GFR > 60 (59 - ) Glucose 115 H (65-110) mg/dL Calcium 9.2 (8.4-10.2) mg/dL Magnesium 1.9 (1.6-2.3) mg/dL Total Bilirubin 1.1 (0.2-1.3) mg/dL AST 59 (17-59) U/L ALT 57 H (6-50) U/L Alkaline Phosphatase 74 (38-126) U/L Troponin I 0.024 0.027 (0.000-0.034) ng/mL NT-Pro-B Natriuret Pep 2270 H (19.9-100) pg/mL Total Protein 8.0 (6.3-8.2) g/dL Albumin 4.2 (3.5-5.1) g/dL <Bhavin Navarrete MD - Last Filed: 09/06/24 21:56> Lab Results 09/06/24 09/06/24 Range/Units 14:05 18:49 WBC 7.9 (4.5-10.0) K/mm3 RBC 3.41 L (4.6-6.20) M/mm3 Hgb 12.3 L (14.0-18.0) g/dL Hct 36.5 L (42.0-52.0) % MCV 107.0 H (80-100) fl MCH 36.1 H (26-34) pg MCHC 33.7 (32-36) g/dl RDW 15.2 H (11.5-14.5) % Plt Count 192 (150-375) k/mm3 MPV 10.6 H (7.4-10.4) fl Immature Gran % (Auto) 0.4 (0-0.5) % Neut % (Auto) 82.1 H (45.5-73.1) % Lymph % (Auto) 9.4 L (18.3-44.2) % Coke % (Auto) 7.5 (2.6-8.5) % Eos % (Auto) 0.3 (0-4.4) % Baso % (Auto) 0.3 (0.2-1.2) % Lymph # (Auto) 0.74 L (0.9-3.2) K/mm3 Coke # (Auto) 0.6 (0.1-0.6) K/mm3 Eos # (Auto) 0.0 (0-0.3) K/mm3 Baso # (Auto) 0.0 (0.0-0.1) K/mm3 Abs Immat Gran (auto) 0.03 (0.00-0.031) K/mm3 Absolute Neuts (auto) 6.5 (1.3-6.7) K/mm3 Absolute Nucleated RBC 0.000 (0.0-0.012) K/mm3 Nucleated RBC % 0.0 (0.0-0.2) % Platelet Estimate Adequate (Adequate) Anisocytosis 2+ Macrocytosis 1+ (NORMAL) Schistocytes None seen PT 13.6 (11.1-14.7) Seconds INR 1.0 APTT 29.1 (22.3-36.8) Seconds Sodium 136 L (137-145) mmol/L Potassium 4.7 (3.4-5.0) mmol/L Chloride 107 (98-107) mmol/L Carbon Dioxide 27 (22-30) mmol/L Anion Gap 2 L (4-12) mmol/L BUN 18 (9-20) mg/dL Creatinine 1.00 (0.7-1.3) mg/dL Estim Creat Clear Calc 49 ml/min Estimated GFR > 60 (59 - ) Glucose 115 H (65-110) mg/dL Calcium 9.2 (8.4-10.2) mg/dL Magnesium 1.9 (1.6-2.3) mg/dL Total Bilirubin 1.1 (0.2-1.3) mg/dL AST 59 (17-59) U/L ALT 57 H (6-50) U/L Alkaline Phosphatase 74 (38-126) U/L Troponin I 0.024 0.027 (0.000-0.034) ng/mL NT-Pro-B Natriuret Pep 2270 H (19.9-100) pg/mL Total Protein 8.0 (6.3-8.2) g/dL Albumin 4.2 (3.5-5.1) g/dL <Dat Suazo MD - Last Filed: 09/07/24 06:56> Imaging Data Radiologist's impression: ITS Impressions Chest X-Ray 09/06/24 16:14 IMPRESSION: Left basilar atelectasis versus pneumonia with minimal effusion. Slight cardiomegaly. Congestive senthil. Cardiac decompensation is not excluded. <Bhavin Navarrete MD - Last Filed: 09/06/24 21:56> ECG Data EKG #1: ECG completion date: 09/06/24 <Bhavin Navarrete MD - Last Filed: 09/06/24 21:56> ECG completion time: 13:19 <Bhavin Navarrete MD - Last Filed: 09/06/24 21:56> EKG Interpretation: tachycardia (113), sinus rhythm, PVCs, PACs, non-specific ST changes, normal QRS and NL axis <Bhavin Navarrete MD - Last Filed: 09/06/24 21:56> Discharge Plan Discharge Clinical Impression: Aortic stenosis, Orthopnea <Keena Bird PA-C - Last Filed: 09/06/24 13:26> Patient Disposition: Still a Patient <Keena Bird PA-C - Last Filed: 09/06/24 13:26> Condition: Stable <Keena Bird PA-C - Last Filed: 09/06/24 13:26> Patient Language: Arabic <Keena Bird PA-C - Last Filed: 09/06/24 13:26> Prescriptions: New furosemide [Lasix] 20 mg tablet 20 mg PO DAILY Qty: 7 0RF No Action folic acid 1 mg tablet 1 mg PO DAILY prednisone 2.5 mg tablet 2.5 mg PO DAILY multivitamin Tablet 1 tablet PO DAILY saw palmetto 160 mg capsule 160 mg PO DAILY Rx Instructions: give with meal/snack omeprazole 20 mg capsule,delayed release(DR/EC) 20 mg PO DAILY finasteride 5 mg tablet 5 mg PO DAILY methotrexate sodium 25 mg/mL solution 25 mg subcut WEEKLY acetaminophen [Tylenol Extra Strength] 500 mg tablet 500 mg PO Q6H PRN (Reason: Pain (Scale Score 4-6)) atorvastatin 20 mg tablet 20 mg PO DAILY Qty: 90 3RF <Keena Bird PA-C - Last Filed: 09/06/24 13:26> Follow-up/Referrals: Darwin Stoll DO [Physician] - 3 Days Francisco Garcia MD [Primary Care Provider] - <Keena Bird PA-C - Last Filed: 09/06/24 13:26>
[2024-09-06 14:27] LABS: Basophils Percent Auto 0.3 % (0.2-1.2); Eosinophils Percent Auto 0.3 % (0-4.4); Hematocrit 36.5 % (42.0-52.0); Hemoglobin 12.3 g/dL (14.0-18.0); Immature Granulocyte Absolute 0.03 K/mm3 (0.00-0.031); Immature Granulocyte Percent A 0.4 % (0-0.5); Lymphocytes Absolute Auto 0.74 K/mm3 (0.9-3.2); Lymphocytes Percent Auto 9.4 % (18.3-44.2); Mean Corpuscular HGB Conc 33.7 g/dl (32-36); Mean Corpuscular Hemoglobin 36.1 pg (26-34); Mean Platelet Volume 10.6 fl (7.4-10.4); Monocytes Absolute Auto 0.6 K/mm3 (0.1-0.6); Monocytes Percent Auto 7.5 % (2.6-8.5); Neutrophils Absolute Auto 6.5 K/mm3 (1.3-6.7); Neutrophils Percent Auto 82.1 % (45.5-73.1); Platelet Count Result 192 k/mm3 (150-375); Red Blood Count 3.41 M/mm3 (4.6-6.20); Red Cell Distribution Width 15.2 % (11.5-14.5); White Blood Count 7.9 K/mm3 (4.5-10.0)
[2024-09-06 14:44] LABS: Alanine Aminotransferase 57 U/L (6-50); Albumin Level 4.2 g/dL (3.5-5.1); Alkaline Phosphatase 74 U/L (38-126); Anion Gap 2 mmol/L (4-12); Aspartate Amino Transferase 59 U/L (17-59); Bilirubin,Total 1.1 mg/dL (0.2-1.3); Blood Urea Nitrogen 18 mg/dL (9-20); Calcium 9.2 mg/dL (8.4-10.2); Carbon Dioxide 27 mmol/L (22-30); Chloride 107 mmol/L (98-107); Estimated CRCL calculation 49 ml/min; Estimated Glomerular Filt Rate > 60; Glucose 115 mg/dL (65-110); Magnesium 1.9 mg/dL (1.6-2.3); Potassium 4.7 mmol/L (3.4-5.0); Prothrombin Time 13.6 Seconds (11.1-14.7); Sodium 136 mmol/L (137-145)
[2024-09-06 14:45] LABS: Partial Thromboplastin Time 29.1 Seconds (22.3-36.8)
[2024-09-06 14:52] LABS: Macrocytosis 1+ (NORMAL); Platelet Estimate Adequate (Adequate); Schistocytes None Seen
[2024-09-06 14:53] LABS: Anisocytosis 2+
[2024-09-06 14:56] LABS: NT Pro B Type Natriuretic Pept 2270 pg/mL (19.9-100); Troponin I 0.024 ng/mL (0.000-0.034)
--- NOTE | 2024-09-06 18:48 | ECG_ITS ---
Test Date: 2024-09-06 18:52:17 Measurements Intervals [place] Rate: 109 P: 42 UT: 166 QRS: 38 QRSD: 75 T: 139 QT: 325 QTc: 438 Interpretive Statements SINUS TACHYCARDIA WITH OCCASIONAL VENTRICULAR PREMATURE COMPLEXES WITH OCCASIONAL SUPRAVENTRICULAR PREMATURE COMPLEXES LEFT VENTRICULAR HYPERTROPHY AND ST-T CHANGE [VOLTAGE CRITERIA PLUS ST/T ABNORMALITY] Compared to ECG 09/06/2024 13:19:35 No significant changes Electronically Signed On 09-07-2024 22:55:23 VISITING HOUSEKEEPER by Abel Lugo M.D.
[2024-09-06 19:20] LABS: Troponin I 0.027 ng/mL (0.000-0.034)
[2024-09-06] MEDS: FUROSEMIDE INJ 40 MG/4 ML VIAL 20 MG IV PUSH (20:35)
[2024-09-06] MEDS: METOPROLOL TARTRATE 12.5 MG TABLET PO (21:19)
[2024-09-07] VITALS (27 sets, daily range): BP systolic 79–134; BP diastolic 56–96; PULSE 91–125; RESP 13–26; O2SAT 82–97
[2024-09-07] MEDS: SODIUM CHLORIDE 0.9% IV 500 ML 999 ML ×2 (02:19)
--- NOTE | 2024-09-07 02:58 | PC.NURSE ---
Vinay Harrington aware of patient's lower BP's. Has received two 500ml NS boluses.
--- NOTE | 2024-09-07 07:32 | PC.NURSE ---
Patient updated on transfer status. Transport called and ETA is 0900.
--- NOTE | 2024-09-07 07:46 | PC.NURSE ---
Patient ambulated to the restroom with steady gate
== END 2024-09-07 12:00 | disposition short-term general hospital (02) ==
PROVIDERS: Physician Assistant; Emergency Provider Emergency Medicine; PCP Family Medicine Adolescent Medicine
DX: I35.0 Nonrheumatic aortic (valve) stenosis (principal); R06.01 Orthopnea; Z87.891 Personal history of nicotine dependence; Z79.899 Other long term (current) drug therapy; R00.0 Tachycardia, unspecified; I49.3 Ventricular premature depolarization; I49.1 Atrial premature depolarization; I51.7 Cardiomegaly; R94.31 Abnormal electrocardiogram [ECG] [EKG]
CPT/HCPCS: 36415; 71046; 80053; 83735; 83880; 84484; 85025; 85610; 85730; 93005; 96361; 96374; 99285; A9270; J1940; J7040

== ENCOUNTER 2025-01-27 08:45 | Outpatient (RCR) | payer MEDICARE, SELFPAY ==
[2024-11-02 11:58] VITALS: PULSE 74
== END 2025-01-27 09:49 | disposition home or self-care (01) ==
LOC: ANHCPREHAB 08:45
PROVIDERS: PCP Family Medicine Adolescent Medicine; Visit Provider Internal Medicine Cardiovascular Disease
DX: Z95.2 Presence of prosthetic heart valve (principal)
CPT/HCPCS: 93798

== ENCOUNTER 2025-06-30 07:58 | Outpatient (CLI) | payer MEDICARE, SELFPAY ==
--- OUTSIDE RECORDS SUMMARY | 2025-06-30 08:05 | XMS_ITS | Clinical Summary ---
Author Organization [facility] Address [address], [address] [address] Phone Care Team Providers Care Assistant Press Operator Name Role Phone Francisco Garcia MD Primary Care Provider + Medications polyethylene glycol (MIRALAX) Powder Mix the entire bottle with 64 oz of a clear liquid. Use as directed by the office for colonoscopy prep. 255 g 7 Active Social History Tobacco Use Types Packs/Day Years Used Date Smoking Tobacco: Never Assessed Sex and Gender Information Value Date Recorded Sex Assigned at Not on file Legal Sex Male 1:00 PM CDT Gender Identity Not on file Sexual Orientation Not on file Plan of Treatment Health Maintenance Due Date Last Done Comments Hepatitis C Virus (HCV) Screening 1940 TdaP Immunization 1940 Pneumococcal Immunization (5 0+ years) (1 of 1 - PCV) 1992 Zoster Immunization (1 of 2) 1992 Respiratory Syncytial Virus (RSV) Immunization (Adult) (1 - 1-dose 75+ series) 2017 Influenza Immunization (#1) 2025 SARS-COV-2 Immunization ( - season) 2025 Hepatitis B Immunization Aged Out No longer eligible based on patient's age to complete this topic Human Papillomavirus (HPV) Immunization Aged Out No longer eligible b ased on patient's age to complete this topic Meningococcal Immunization (ACWY) Aged Out No longer eligible based on patient's age to complete this topic Rotavirus Immunization Aged Out No lo nger eligible based on patient's age to complete this topic Care Teams Assistant Press Operator Relationship Specialty Start Date End Date Francisco Garcia MD PCP - General Family Medicine 04/15/17
--- OUTSIDE RECORDS SUMMARY | 2025-06-30 08:05 | XMS_ITS | Encounter Summary ---
Author Organization [facility] Address [address] [place] [address] Care Team Providers Care Pointing Machine Operator Name Role Phone Francisco Garcia MD Primary Care Prov ider Pamella Stevens MD Unavailable [phone] Darwin Stoll DO Unavailable [phone] Richardson Loomis MD Unavailable [phone] Rex New MD Unavailable Jennifer Parks NP Unavailable [phone] Encounter Details Date Type Department Care Team (Late st Contact Info) Description 08/06/2024 Orders Only [facility] Health Information Management [address] [place] [id number] Scanning, Provider Social History Tobacco Use Types Packs/Day Years Used Date Smoking Tobacco: Former Cigarettes 1 10 1 960 - 1970 Smokeless Tobacco: Never Alcohol Use Standard Drinks/Week Comments Yes 0 (1 standard drink = 0.6 oz pur e alcohol) Sex and Gender Information Value Date Recorded Sex Assigned at Not on file Legal Sex Male 3:06 AM BRAND REPRESENTATIVE Gender Identity Not on file Sexual Orientation Not on file documented as of this encounter Plan of Treatment Not on file documented as of this encounter Procedures Procedure Name Priority Date/Time Associated Diagnosis Comments SCAN - LABS 08/06/2024 9:28 PM BRAND REPRESENTATIVE CARDIOLOGY DOCUMENT SCAN 08/05/2024 9:29 PM BRAND REPRESENTATIVE documented in this encounter Results * SCAN - LABS (08/06/2024 9:28 PM BRAND REPRESENTATIVE) us Provider Scanning Final Result * Cardiology Document Scan (08/05/2024 9:29 PM BRAND REPRESENTATIVE) Anatomical Region Laterality Modality Other us Provider Scanning CV CARDIAC SERVICES PROCEDURES Final Result documented in this encounter Visit Diagnoses Not on filedocumented in this encounter Care Teams Pointing Machine Operator Relationship Specialty Start Date End Date Francisco Garcia MD PCP - General Family Medicine 04/30/18 Pamella Stevens MD Referring Physician Critical Care Med 03/24/19 Darwin Stoll DO [address] [place] [address] Referring Physician Internal Medicine 08/18/24 Richardson Loomis MD [address] [place], [place] [id number] Consulting Physician Cardiothoracic Surgery 08/18/24 Rex New MD [address] [place] [address] Consulting Physician Cardiology 08/31/24 Jennifer Parks NP [address] [place], [place] [id number] Nurse Practitioner Cardiothoracic Surgery 09/10/24 documented as of this encounter
--- OUTSIDE RECORDS SUMMARY | 2025-06-30 08:05 | XMS_ITS | Clinical Summary ---
Author Organization [facility] Address [address] [place] [address] Care Team Providers Care Fireworks Maker Name Role Phone Francisco Garcia MD Primary Care Prov ider Pamella Stevens MD Unavailable [phone] Darwin Stoll DO Unavailable [phone] Richardson Loomis MD Unavailable Rex New MD Unavailable Jennifer Parks NP Unavailable [phone] Allergies Active Allergy Reactions Criticality Noted Date Comments Fish Containing Products Hives Medium 05/13/2018 Not all fish just Flat fish tilipia, flounder Ibuprofen Hives Medium 05/13/2018 Medications atorvastatin (LIPITOR) 20 mg tablet Take 1 tablet (20 mg total) by mouth daily 8 Active folic acid (FOLVITE) 1 mg tablet Take 1 tablet (1 mg total) by mouth daily 8 Active methotrexate 25 mg/mL injection solution Inject 1 mL (25 mg total) into the muscle as instructed every 7 days Every Friday AM 9 Active cholecalciferol (VITAMIN D-3) 1,000 unit capsule Take 1 capsule (1,000 Units total) by mouth daily 3 9 Active predniSONE (DELTASONE) 2.5 mg tablet TAKE 3 TABLETS BY MOUTH EVERY OTHER DAY 6 9 Active MULTIVITAMIN ORAL Take 1 tablet by mouth daily Active SAW PALMETTO ORAL Take 100 mg by mouth daily Active omeprazole (PriLOSEC) 20 mg capsule Take 1 capsule (20 mg total) by mouth daily Active acetaminophen (TYLENOL) 325 mg tabletIndicatio ns:Fever,Pain Take 2 tablets (650 mg total) by mouth every 4 (four) hours as needed for pain 5 Active aspirin 81 mg chewable tabletIndicatio ns:coronary artery disease Take 1 tablet (81 mg total) by mouth daily 30 tablet 11 5 09/11/19 26 Active metoprolol tartrate (LOPRESSOR) 25 mg immediate release tablet Take 1 tablet (25 mg total) by mouth 2 (two) times a day 60 tablet 1 5 Active Active Problems Patient Care Coordination No te Formatting of this note migh t be different from the original. Mr. Surinder Navarro is a 77-year-old who presents with an endobronchial lesion. He originally presented with hematuria and fevers. This led to a CT of the abdomen and pelvis which incidentally showed a 9 mm endobronchial lesion in the lateral basal segment of the right lower lobe. The CT did also make note of cirrhosis of the liver. On 04/30/2018, the patient underwent a chest CT with IV contrast which demonstrated mild bilateral apical scarring/calcification. A 9 mm soft tissue endobronchial mass was noted in the posterior basilar right lower lobe bronchus with associated distal mild discoid posterior right basilar atelectasis. A small calcified granuloma was noted in the left lower lobe. A 2 mm opacity in the peripheral lateral left basilar area. On 05/18/2018, the patient underwent a bronchoscopy with biopsy and BAL. Final pathology was negative for malignancy. Finally on 06/04/2018, the patient underwent a PET scan which did not appreciate the 9 mm right lower lobe endobronchial lesion. Patient denies any respiratory symptoms. Patient has a remote 10 pack year smoking history and quit when he was 30. He also states that he was exposed to asbestos in the 60s. Patient presents today for further surgical evaluation. 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 The valve is functioning well. We will plan for a 1 year TAVR follow up. Critical aortic valve stenosis 09/07/2024 Hypotension 09/07/2024 SOB (shortness of breath) 09/07/2024 Other chest pain 09/07/2024 GERD without esophagitis 09/07/2024 PVC's (premature ventricular contractions) 09/07 Sinus tachycardia 09/07/2024 Encounter for examination fo r normal comparison and control in clinical research program 09/03/2024 Nonrheumatic aortic valve stenosis 08/31/2024 Coronary artery disease invo lving [place] coronary artery of [place] heart without angina pectoris 08/31/2024 Mixed hyperlipidemia 08/31/2024 Syncope 08/31/2024 Lung mass 06/22/2018 Surgical History Surgery Date Site/Laterality Comments ANKLE SURGERY 09/08/2004 - 09/07/2005 Left HERNIA REPAIR 09/08/2021 - 09/07/2022 CATARACT EXTRACTION 09/08/2021 - 09/07/2022 Bilateral TRANSCATHETER AORTIC VALVE REPLACEMENT 09/09/2024 23 [place] Medical History Medical History Date Comments HLD (hyperlipidemia) Neuropathy Broken neck (HCC) Aortic stenosis Rheumatoid arthritis (HCC) Family History Medical History Relation Name Comments No Known Problems Father Heart disease Mother Sudden Mother Relation Name Status Comments Father Mother Social History Tobacco Use Types Packs/Day Years Used Date Smoking Tobacco: Former Cigarettes 1 10 1 960 - 1970 Smokeless Tobacco: Never Tobacco Cessation:Counseling Given: Not Answered Alcohol Use Standard Drinks/Week Comments Yes 0 (1 standard drink = 0.6 oz pur e alcohol) [facility] Utilities Answer Date Recorded In the past 12 months has [employer], oil, or water [employer] threatened to shut off services in your home? No 09/08/2024 Social Connection and Isolation Panel Answer Date Recorded In a typical week, how many times do you talk on the phone with family, friends, or neighbors? More than three times a week 09/08/2024 How often do you get togethe r with friends or relatives? More than three times a week 09/08/2024 How often do you attend [facility] or roman catholic services? More than 4 times per year 09/08/2024 Do you belong to any clubs o r organizations such as sikhism groups, unions, fraternal or athletic groups, or school groups? Yes 09/08/2024 How often do you attend meet ings of the clubs or organizations you belong to? More than 4 times per year 09/08/2024 Are you , , di vorced, , never , or living with a partner? 09/08/2024 Overall Financial Resource Strain (CARDIA) Answe r Date Recorded How hard is it for you to pa y for the very basics like food, housing, medical care, and heating? Not very hard 09/08/2024 Hunger Vital Sign Answer Date Recorded Within the past 12 months, y ou worried that your food would run out before you got the money to buy more. Never true 09/08/19 25 Within the past 12 months, t he food you bought just didn't last and you didn't have money to get more. Never true 09/08/2024 PRAPARE - Transportation Answer Date Re corded In the past 12 months, has l ack of transportation kept you from medical appointments or from getting medications? No 09/2024 In the past 12 months, has l ack of transportation kept you from meetings, work, or from getting things needed for daily living? No 09/08/2024 Housing Stability Vital Sign Answer Davin e Recorded In the last 12 months, was t here a time when you were not able to pay the mortgage or rent on time? No 09/08/2024 In the past 12 months, how m any times have you moved where you were living? 0 09/08/2024 At any time in the past 12 m [facility], were you homeless or living in a residential (including now)? No 09/08/2024 Personal Safety Answer Date Recorded Have you ever been in or are you currently in a harmful physical or emotional relationship or is someone making you feel afraid or unsafe? Denies 09/07/2024 Sex and Gender Information Value Date Recorded Sex Assigned at Not on file Legal Sex Male 3:06 AM BLOW PIT HELPER Gender Identity Not on file Sexual Orientation Not on file Obstetrics History Last Filed Vital Signs Vital Sign Reading Time Taken Comments Blood Pressure 129/67 10/14/2024 12:20 PM BLOW PIT HELPER Pulse 56 10/14/2024 12:20 PM BLOW PIT HELPER Temperature 36.7 C (98.1 F) 09/11/2024 9:48 AM BLOW PIT HELPER Respiratory Rate 18 09/11/2024 9:48 AM BLOW PIT HELPER Oxygen Saturation 94% 09/11/2024 9:48 AM BLOW PIT HELPER Inhaled Oxygen Concentration - - Weight 77.1 kg (170 lb) 10/14/2024 12:20 PM BLOW PIT HELPER Height 172.7 cm (5' 8) 10/14/2024 12:20 PM BLOW PIT HELPER Body Mass Index 25.85 10/14/2024 12:20 PM BLOW PIT HELPER Plan of Treatment Health Maintenance Due Date Last Done Comments Depression Screening 1942 DTaP/Tdap/Td Vaccine (1 - Tdap) 1953 Hepatitis B Screening 1960 Pneumococcal vaccine 65+ (1 of 2 - PCV) 1961 Zoster Vaccine (1 of 2) 1961 Abdominal Aortic Aneurysm (AAA) Screen 2007 Well Visit 65+ 2007 Covid-19 Vaccine (3 - Moderna risk series) 12/08/2020 11/10/2020, 10/09/2020 Influenza Vaccine (#1) 2025 Fall Risk Assessment 09/11/2025 09/11/2024 Medical Devices Implanted Type Area Molder Setter Device Identifier Shelf Expiration Date Model / Serial / Lot [employer] Valve Heart 23mm Paulette 3 Transcatheter [id number] - [id number] - [id number] Implanted:Qty: 1 on 09/09/2024 by Rex New MD at [facility] Prosthetic Valve N/A: Aortic Valve [employer] 04/23/2027 [id number] / [id number] [employer] 18f Manta Vascular Closure Device 2115 - S0 - [id number] Implanted:Qty: 1 on 09/09/2024 by Rex New MD at [facility] Vascular Closure Device Right: Femoral [employer] 06/30/20255 / 0 / [id number] Insurance [facility] MEDICARE [facility] Address: [address] [place] [phone] [address] [place] [id number] [facility] MEDIC[facility] Address: [address] [place] [phone] [address] [place] [id number] Advance Directives For more information, please contact: [phone] * Full Code (Latest Code Status on File) Date Activated Date Inactivated Comments 09/07/2024 12:25 PM 09/11/2024 4:18 PM Care Teams Fireworks Maker Relationship Specialty Start Date End Date Francisco Garcia MD PCP - General Family Medicine 04/30/18 Pamella Stevens MD Referring Physician Critical Care Med 03/24/19 Darwin Stoll DO [address] [place] [address] Referring Physician Internal Medicine 08/18/24 Richardson Loomis MD [address] [facility] [address] [place] [address] Consulting Physician Cardiothoracic Surgery 08/18/24 Rex New MD [address] [facility] [address] [place] [address] Consulting Physician Cardiology 08/31/24 Jennifer Parks NP [address] [facility] [address] [place] [address] Nurse Practitioner Cardiothoracic Surgery 09/10/24
--- OUTSIDE RECORDS SUMMARY | 2025-06-30 08:05 | XMS_ITS | Clinical Summary ---
Author Organization [facility] Address [address] [place] [address] Care Team Providers Care Rigger Helper Name Role Phone Unavailable Primary Care Provider Unavailabl e Social History Tobacco Use Types Packs/Day Years Used Date Smoking Tobacco: Never Assessed Sex and Gender Information Value Date Recorded Sex Assigned at Not on file Legal Sex Male 2:06 PM CDT Gender Identity Not on file Sexual Orientation Not on file Plan of Treatment Health Maintenance Due Date Last Done Comments DTAP/TDAP/TD VACCINES (1 - Tdap) 1961 PNEUMOCOCCAL VACCINE 50+ YEARS (1 of 1 - PCV) 08/26/19 92 ZOSTER VACCINE (1 of 2) 1992 RSV VACCINE (60+ or ) (1 - 1-dose 75+ series) 2017 INFLUENZA VACCINE (#1) 2025
--- OUTSIDE RECORDS SUMMARY | 2025-06-30 08:05 | XMS_ITS | Clinical Summary ---
Author Organization [facility] Address [address] [place] [address] Care Team Providers Care Bookseamer Blindstitch Name Role Phone Unavailable Primary Care Provider Unavailabl e Immunizations Immunization Administration Dates Next Due MODERNA COVID-19 (12+) MRNA, LNP-S, PF, 100 MCG/ 0.5 ML DOSE 11/10/2020 Social History Tobacco Use Types Packs/Day Years Used Date Smoking Tobacco: Never Assessed Sex and Gender Information Value Date Recorded Sex Assigned at Not on file Legal Sex Male 1:58 PM RUBBER GRINDER Gender Identity Not on file Sexual Orientation Not on file Plan of Treatment Health Maintenance Due Date Last Done Comments DTaP, Tdap and Td Vaccines ( 1 - Tdap) 1961 Pneumococcal Vaccine: 50+ Years (1 of 1 - PCV) 1992 Zoster Vaccines (1 of 2) 1992 RSV Immunization or 60+ Years (1 - 1-dose 75+ series) 2017 COVID-19 Vaccine (3 - 2024-2 6 season) 2025 11/10/2020, 10/09/2020 Influenza Adult (#1) 2025 Meningococcal B Vaccine Aged Out No l onger eligible based on patient's age to complete this topic Meningococcal Vaccine Aged Out No una td eligible based on patient's age to complete this topic RSV Immunizations Under 20 Months Aged Out No longer eligible b ased on patient's age to complete this topic
[2025-06-30 09:18] LABS: Cholesterol 157 mg/dL (0-200); HDL Direct 77 mg/dL; Triglycerides 57 mg/dL (<150)
== END 2025-06-30 07:59 | disposition home or self-care (01) ==
PROVIDERS: PCP Nurse Practitioner Family; Visit Provider Internal Medicine Cardiovascular Disease
DX: E78.00 Pure hypercholesterolemia, unspecified (principal)
CPT/HCPCS: 36415; 80061